=== PATIENT | female | born 1975 | race Caucasian/White ===

== ENCOUNTER → 2020-08-24 13:01 | Outpatient (CLI) | payer OTHER, SELFPAY ==
--- NOTE | 2020-08-24 13:06 | BD_ITS ---
STUDY: DUAL ENERGY X-RAY ABSORPTIOMETRY / DXA REASON FOR EXAM: Female, 45 years old. 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 COMPARISON: None. FINDINGS: Lumbar Spine (L1-L4): g/cm2 (1.672) / T-score (4.1) / Z-score (4.1) Findings are suggestive of normal bone density with a low fracture risk. Left Femur Total: g/cm2 (1.158) / T-score (1.2) / Z-score (1.5) Left Femoral Neck: g/cm2 (1.108) / T-score (0.5) / Z-score (1.1) Right Femur Total: g/cm2 (1.134) / T-score (1.0) / Z-score (1.3) Right Femoral Neck: g/cm2 (1.086) / T-score (0.3) / Z-score (0.9) BD/Dexa Bone Density Study IMPRESSION: The patient is considered normal as outlined below according to World Reese Organization (WHO) criteria with a low fracture risk. Reference Information: The T-score is the number of standard deviations above or below the standard which is normal for young adults at their peak bone mineral density. The World Health Organization (WHO) interprets the T-scores as follows: Above -1 Normal bone density Between -1 and -2.5 Osteopenia Equal to / or below -2.5 Osteoporosis As a practical clinical guideline, osteopenia may be graded as follows: Mild -1 through -1.5 Moderate -1.6 through -2.0 Severe -2.1 through -2.4 The Z-score is the number of standard deviations above or below age-matched controls. A Z-score of less than -1.5 would be considered abnormal. References: 1. NIH Osteoporosis and Related Bone Diseases www osteo.org 2. International Society for Clinical Densitometry www iscd.org 3. National Osteoporosis Foundation www nof.org Electronically Signed: Jose Escobar, at 15:32 EDT , Service support ,
== END ==
PROVIDERS: PCP Internal Medicine; Referring Provider Internal Medicine Hematology & Oncology; Visit Provider Internal Medicine Hematology & Oncology
DX: C50.812 Malignant neoplasm of overlapping sites of left female breast (principal); Z17.0 Estrogen receptor positive status [ER+]; N95.1 Menopausal and female climacteric states; C79.51 Secondary malignant neoplasm of bone
CPT/HCPCS: 77080

== ENCOUNTER 2020-09-16 10:51 | Day surgery (SDC) | payer OTHER, SELFPAY ==
--- NOTE | 2020-09-15 08:05 | PCM.HP.BLA ---
History and Physical Date of Admission: 09/16/20 Expand AllCollapse All Pre-Op History and Physical ? HPI: The patient is a 45 year old female presenting for pre-operative visit. She is scheduled for Laparoscopic bilateral oophorectomy, for Estrogen receptor positive breast cancer on 09/16/20. Procedure discussed along with risks, benefits and complications. Other alternatives discussed for management. Consent form signed? Yes. ? ? PAST MEDICAL HISTORY PAST MEDICAL HISTORY Diagnosis Date ? Abnormal mammogram, unspecified ? ? Lump or mass in breast ? ? Malignant neoplasm of breast (female), unspecified site ? ? LEFT BREAST ? Other abnormal Papanicolaou smear of cervix and cervical HPV(795.09) 1997 ? Vitamin D deficiency ? ? ? PAST SURGICAL HISTORY PAST SURGICAL HISTORY Procedure Laterality Date ? BX OF BREAST; NEEDLE CORE ? 08-18-08 ? left breast stereo core biopsy done at outside facility ? BX OF BREAST; NEEDLE CORE ? 08-20-08 ? left axillary u/s guided core biopsy ? HYSTEROSCOPY, ABLATION Bilateral 12/26/2016 ? LAPAROSCOPIC SALPINGECTOMY (Bilateral) - Position 1 ? LEEP PROCEDURE (CASINO MANAGER DEPT)_*FL ? approx 1995 ? severe dysplasia ? MASTECTOMY, RADICAL ? 02/04 ? Left with SN biopsy and ALND ? MASTECTOMY, SIMPLE, COMPLETE ? 02/04 ? right with SN biopsy ? PAST SURGICAL HISTORY OF ? ? ? oral surgery ? PAST SURGICAL HISTORY OF ? 01/2009 ? reconstruction w/tissue expanders ? PAST SURGICAL HISTORY OF ? 12/08 [facility] ? stage II reconstruction w/removal expanders and insertion of breast implants ? PAST SURGICAL HISTORY OF ? 2009 ? nipple reconstruction and abdominoplasty ? PAST SURGICAL HISTORY OF ? 2009 ? removal port a cath ? PAST SURGICAL HISTORY OF ? 2010 ? left breast infection, removal implant ? PAST SURGICAL HISTORY OF ? 08/2011 ? left breast- flap w/tissue habilitation worker placement ? PAST SURGICAL HISTORY OF ? 01/03/2012 ? left breast implant and nipple construction ? PAST SURGICAL HISTORY OF ? 10/2012 ? Revision Left Breast ? SALPINGECTOMY Bilateral 2018 ? STEREOTACTIC CORE BIOPSY ? 08/18/2008 ? left breast- (+) cancer ? TUNNEL VAD W SUB Q PORT >=5 ? 08/31/08 ? RIGHT IJ FERNANDO CATH ? ? ? CURRENT MEDICATIONS Current Outpatient Medications Medication Sig Dispense Refill ? zinc sulfate (ZINC-15 ORAL) Take 30 mg by mouth. ? ? ? calcium carbonate (CALCIUM 500 ORAL) Take by mouth. ? ? ? L.acid/L.casei/B.bif/B.mirza/FOS (PROBIOTIC BLEND ORAL) Take by mouth. ? ? ? TURMERIC ORAL Take 300 mg by mouth. ? ? ? anastrozole (ARIMIDEX) 1 mg tablet Take 1 tablet by mouth once daily. 90 tablet 3 ? ascorbic acid (VITAMIN C ORAL) Take 1 tablet by mouth once daily. ? ? ? Multivitamin capsule Take 1 capsule by mouth once daily. ? ? ? abemaciclib (VERZENIO) 150 mg tablet Take 1 tablet (150 mg) by mouth twice daily. 56 tablet 5 ? MAGNESIUM CITRATE ORAL Take 1 capsule by mouth as needed. ? ? ? FISH OIL-DHA-EPA ORAL Take 1 capsule by mouth once daily. ? simethicone, chewable (MYLICON) 80 mg chewable tablet Take 1 tablet by mouth every 6 hours as needed. 30 tablet 0 ? dicyclomine (BENTYL) 10 mg capsule Take 1 capsule by mouth three times daily. (Patient taking differently: Take 10 mg by mouth three times daily. PRN ) 90 capsule 2 ? Ibuprofen 200 mg cap Take by mouth as needed. ? ? ? No current facility-administered medications for this visit. ? ? ALLERGIES: Patient has no known allergies. ? PERSONAL HISTORY: SOCIAL HISTORY Social History ? Tobacco Use ? Smoking status: Never Smoker ? Smokeless tobacco: Never Used Substance Use Topics ? Alcohol use: Yes ? ? Comment: Seldom ? Drug use: No ? FAMILY HISTORY: FAMILY HISTORY FAMILY HISTORY Problem Relation Age of Onset ? Hypertension Mother ? ? Lipids Mother ? ? High Cholesterol ? Osteoporosis Mother ? ? (Osteopenia) ? Breast Cancer Mother 65 ? Hypertension Father ? ? Diabetes Father ? ? DVT Father ? ? Hypertension Maternal Grandfather ? ? Cancer Paternal Grandmother ? ? melonoma ? Alzheimer's Disease Paternal Grandmother ? ? Cancer Paternal Grandfather ? ? melanoma/bladder ? Breast Cancer No Family History ? ? ? REVIEW OF SYMPTOMS: negative except as noted above PHYSICAL EXAMINATION: ? VITALS: Blood pressure 108/60, height 5' 4.6 (1.641 m), weight 134 lb (60.8 kg), last menstrual period 11/29/2016. ? GENERAL: The patient is well nourished, well hydrated in no acute distress. , The patient is oriented to time, place, and person. NECK: Normal range of motion. WET PREP: Not indicated Neuro: Alert and oriented x 3 ? IMPRESSION: 45yo with Metastatic Estrogen receptor + breast cancer ? PLAN: Laparoscopic bilateral oophorectomy - supported by Oncology ? Pt has been counseled on risks/benefits and alternatives of surgery including but not limited to anesthesia, bleeding, infection, injury to pelvic structures including bowel, bladder, ureters and vessels. Pt wishes to proceed with surgery at this time. ? ? ? I have reviewed and updated past medical and surgical history, medications and allergies Lenora Ulloa MD Note Details Instructions Principal Research Economist Worksheet (Printed 09/08/2020), After Visit Summary (Printed 09/08/2020) Additional Documentation Vitals: ? BP 108/60 Ht 5' 4.6 (1.641 m) Wt 134 lb (60.8 kg) LMP 11/29/2016 BMI 22.58 kg/m? BSA 1.66 m? Procedure Criteria Procedure Type: Elective COVID Risk Discussion: The surgeon/proceduralist and patient have discussed in detail the risk of exposure to and/or potential harm posed by the COVID-19 virus with having a surgery/procedure at this time versus the risk of delaying the surgery/procedure. It is not possible to know either the risk of delaying the surgery or procedure or chance of getting an infection with perfect accuracy, but a joint decision was made between the patient and the surgeon/proceduralist to proceed at this time with the scheduled surgery/procedure as indicated on the consent form.
--- NOTE | 2020-09-15 12:50 | EKG12_ITS ---
Test Reason : PRE OP Blood Pressure : / mmHG Vent. Rate : 065 BPM Atrial Rate : 065 BPM P-R Int : 132 ms QRS Dur : 076 ms QT Int : 404 ms P-R-T Axes : 041 077 076 degrees QTc Int : 420 ms Normal sinus rhythm Normal ECG Confirmed by ALBERT LEES, KIM ([id number]), assignment editor MAKSIM BEASLEY ([id number]) on 09/16/2020 11:41:22 AM Referred By: Lenora Garcia Confirmed By:KIM PRICE MD
[2020-09-16] VITALS (7 sets, daily range): BP systolic 85–111; BP diastolic 58–74; PULSE 59–74; RESP 14–16; TEMP 36.3–37.2; O2SAT 96–100; BMI 22.8
[2020-09-16 11:55] LABS: Internal QC Validated? YES +Cl - CLEAR BKGD; Pregnancy, Urine Negative Negative
[2020-09-16] MEDS: Lactated Ringers 1,000 ML 100 ML IV (12:04)
--- NOTE | 2020-09-16 12:30 | OV_PTH ---
PATIENT: LACI RÍOS LOC: [facility] – [place] U#:[id number] AGE/SX: 45/F ROOM: RE09/16/[address]: Dr. Lenora Garcia, MDDOB: 1975 BED: DIS: 09/16/2020 SPEC #: [id number] RECD: 09/16/20 13:50 STATUS: DAPHNE GLORY #: [id number] CESILIA: 09/16/20 12:[address]: Lenora Garcia DEPT: SURGICAL PATHOLOGY RECD BY: Jay Mckeon ENTERED: 09/17/20 08:27 SP TYPE: OVARY OTHR DR: Dr. Charlette Yusuf MD Tissues: Ovary, NOS Procedures: Surgery Specimen Level IV HEADER OPERATION: Laparoscopic oophorectomy PRE-OP DIAGNOSIS: Metastatic breast cancer, ER positive TISSUE SUBMITTED: Bilateral ovaries MICROSCOPIC DIAGNOSIS Bilateral ovaries, oophorectomies: Benign follicular cyst and corpora albicantia. AM:barb 09/20/20 MICROSCOPIC DESCRIPTION Slides are reviewed. GROSS DESCRIPTION Received in fixative is one container labeled with the patient's name and designated bilateral ovaries. The specimen consists of two ovaries that are not designated as to left or right. One ovary is light constantino and has a crinkled surface and measures 2.5 x 1.5 x 1 cm. The other ovary is similar in appearance and measures 3.5 x 1.7 x 1 cm. Golf Course Designer sections of each ovary is submitted separately in two cassettes. / AM:barb 09/17/20 TC:5 CPT: 31108 x2
--- NOTE | 2020-09-16 13:18 | PCM.OPRPT ---
Report of Operation Date of Procedure: 09/16/20 - start [id number] Pre-Operative Diagnosis: Personal history of Estrogen receptor positive breast cancer with Metastasis to bone Post-Operative Diagnosis: same Surgery/Procedure Performed:: laparoscopic bilateral oophorectomy Description of Surgical Findings:: normal ovaries bilateral. Uterus appears normal. Previous salpingectomy. Both ureters identified. preparation supervisor freezing: Sary Morgan Type of Anesthesia:: General Special Medications: 0.5% marcaine Specimen's removed: bilateral ovaries Drains: none Estimated Blood Loss (mL): 5cc Fluids Replaced: 1000cc Description of Procedure: After informed consent was obtained patient was taken to the operating room she was placed in supine position she was given anesthesia. She was then placed in the [facility] stirrups and she was prepped and draped in normal sterile fashion. Bladder was drained prior to the start of procedure approximately 50cc of clear yellow urine was expelled. At this time attention was turned to the vaginal portion where weighted speculum placed at posterior fornix vagina single-tooth tenaculum was used to gently grasp the internal the cervix. [place] Uterine manipulator was placed without difficulty. Legs then placed in parallel with the abdomen the tenaculum and the weighted speculum were removed. 2 towel clamps were placed superior to umbilicus. After Marcaine was injected superior to umbilicus a small incision was made and a 5 mm trocar was placed under direct visualization. CO2 gas was used to insufflate the intra-abdominal cavity. Upon inspection no gross abnormalities appreciated. At this time then the LLQ port was placed again Marcaine was injected small incision was made a knife and the 5 mm trocar was placed. this was repeated on right side. bilateral fallopian tubes surgically absent. Bilateral ureters visualized. Ligasure was used to coagulate and ligate along IP ligament, uterovarian and the mesosalpynx bilaterally until ovaries removed intact. Good hemostasis was appreciated. The umbilical incision was extended and endocatch bag placed- specimens collected and removed. The shelley palmer was then used to closed fascia of umbilical incision using 0-vicryl sutre. followed by a figure of eight suture with 0-vicryl. At this time procedure was deemed complete successful. The gas was desufflated on from the intra-abdominal cavity. The trochars were removed. Skin was closed using 4-0 Monocryl in a subcutaneous fashion. Dermabond glue was placed. Instrument lap and needle counts were correct ?2. The uterine manipulator was removed. Vaginal sweep was performed it was negative. There were no complications anticipated normal postoperative course for this patient. Grafts/Implants Used: none - Complications none - Admit VTE Documentation VTE Present on Admission: Yes VTE Mechan Device Prophylaxis: SCD's VTE Pharm Prophylaxis ordered?: No
[2020-09-16] MEDS: Bupivacaine Mpf 0.5% 30 ML VIAL (13:27)
--- NOTE | 2020-09-16 13:29 | DCINST_ITS ---
Discharge Diet: No Restrictions, - - Increase fluid intake for 48 hours. Discharge Activity: Return to Normal Activity, May Drive - when you are no longer taking narcotic pain medications., May Shower, May Take a Tub Bath - in 7 days., - - Ambulate often the next week after surgery. May resume sexual activity in: 1 week Lifting Restrictions: 20 Additional Activity Instructions:: Nothing in the vagina for the next 5 days. Call your doctor if your incision/area has: Continuous Slow Oozing, Sudden Increased Bleeding, Increased Pain/ Swelling, Increased Redness, Foul Smelling Discharge, Swelling at the incision site Call your doctor if you observe: Fever of 101 or Higher, Uncontrolled pain Cleanse incision/area with: Keep Dressing Clean & Dry, - - you have skin glue over incision sites, let soap and water run over and dab dry. Allergies/Adverse Reactions: Allergies No Known Allergies Allergy (Verified 09/16/20 11:39) Medications to take at Discharge Abemaciclib [Verzenio] 150 mg PO BID 09/09/20 Anastrozole [Arimidex] 1 mg PO DAILY 09/09/20 Ascorbic Acid [Vitamin C] 1,600 mg PO DAILY 09/09/20 Calcium Carbonate/Vitamin D3 [Calcium 500 mg-Vit D3 600 Unit] 1 ea PO DAILY 09/09/20 L.acidoph,Paracasei, B.lactis [Probiotic] 1 ea PO DAILY 09/09/20 Magnesium Oxide [Magnesium] 1,500 mg PO QHS 09/09/20 Multivitamin 1 ea PO DAILY 09/09/20 [place]-3/Dha/Epa/Fish Oil [Fish Oil 1,000 mg Softgel] 1 ea PO DAILY 09/09/20 Turmeric Root Extract [Turmeric] 300 mg PO DAILY 09/09/20 Zinc Gluconate [Zinc] 30 mg PO DAILY 09/09/20 Primary Care Physician: Charlette Yusuf MD [Primary Care Provider] - Test Results: Test results from this visit will be discussed in further detail at your follow- up appointment, if applicable. Please Follow Up With: Lenora Garcia MD When: as scheduled.
== END 2020-09-16 15:37 | disposition home or self-care (01) ==
LOC: SDC 10:51 → AC 10:52
PROVIDERS: PCP Internal Medicine; Referring Provider Obstetrics & Gynecology; Visit Provider Obstetrics & Gynecology
PROC: (CPT 58661; principal; 2020-09-16 12:15)
DX: N83.02 Follicular cyst of left ovary (principal); N83.01 Follicular cyst of right ovary; N83.292 Other ovarian cyst, left side; N83.291 Other ovarian cyst, right side; Z20.828 Contact with and (suspected) exposure to other viral communicable diseases; C50.912 Malignant neoplasm of unspecified site of left female breast; C79.51 Secondary malignant neoplasm of bone; Z17.0 Estrogen receptor positive status [ER+]; E55.9 Vitamin D deficiency, unspecified; Z79.899 Other long term (current) drug therapy
CPT/HCPCS: 00840; 58661; 81025; 87426; 88305; 93005; C9803; J7120; J2405